=== PATIENT | male | born 1960 | race Caucasian/White ===

== ENCOUNTER 2017-01-18 12:06 | Emergency (ER) | payer SELFPAY ==
[2017-01-18 12:09] VITALS: BP 158/80
== END 2017-01-18 12:16 | disposition left against medical advice (07) ==
LOC: ED 12:06
DX: R53.1 Weakness (principal); Z53.21 Procedure and treatment not carried out due to patient leaving prior to being seen by health care provider

== ENCOUNTER 2017-06-04 14:54 | Emergency (ER) | payer OTHER ==
[~2017-06-04] VITALS: Ht 188 cm; Wt 99.8 kg
[2017-06-04 14:57] VITALS: Ht 188 cm; Wt 99.8 kg
[2017-06-04 15:57] VITALS: BP 138/104
== END 2017-06-04 15:57 | disposition home or self-care (01) ==
LOC: ED 14:54
DX: T63.441A Toxic effect of venom of bees, accidental (unintentional), initial encounter (principal); I10 Essential (primary) hypertension; E11.9 Type 2 diabetes mellitus without complications; E78.00 Pure hypercholesterolemia, unspecified; F31.9 Bipolar disorder, unspecified; Y92.89 Other specified places as the place of occurrence of the external cause
CPT/HCPCS: J2930; J3490; J7030

== ENCOUNTER 2018-09-06 13:41 | Emergency (ER) | payer OTHER ==
[~2018-09-06] VITALS: Ht 188 cm; Wt 109.8 kg
[2018-09-06 14:17] VITALS: BP 171/91; Ht 188 cm; Wt 109.8 kg
== END 2018-09-06 14:32 | disposition left against medical advice (07) ==
LOC: ED 13:41
DX: Z53.21 Procedure and treatment not carried out due to patient leaving prior to being seen by health care provider (principal)

== ENCOUNTER 2020-02-08 11:48 | Emergency (ER) | payer OTHER ==
[~2020-02-08] VITALS: Ht 182.9 cm; Wt 98.0 kg
[2020-02-08 12:23] VITALS: Ht 182.9 cm; Wt 98.0 kg
[2020-02-08 13:25] LABS: BASOPHIL % 0.5 % (0-2); PLATELET COUNT 276 x10^3mcL (130-400); RED CELL DISTRIBUTION WIDTH 13.3 % (11.5-14.5)
[2020-02-08 13:44] LABS: ALKALINE PHOSPHATASE 129 U/L (46-116); ALT/SGPT 50 U/L (16-63); AST/SGOT 28 U/L (15-37); BILIRUBIN TOTAL 0.3 mg/dL (0.20-1.00); CALCIUM 8.7 mg/dL (8.5-10.1); CARBON DIOXIDE 29.8 mmol/L (21-32); CHLORIDE SERUM 93 mmol/L (98-107); CREATININE SERUM 1.1 mg/dL (0.7-1.3); GFR1 > 60 mL/min; GLUCOSE SERUM 372 mg/dL (74-106); LIPASE 97 IU/L (73-393); POTASSIUM SERUM 3.9 mmol/L (3.5-5.1); TOTAL PROTEIN, SERUM 7.6 g/dL (6.4-8.2)
[2020-02-08 13:54] LABS: ALBUMIN 3.3 g/dL (3.4-5.0)
[2020-02-08 13:55] LABS: SODIUM SERUM 127 mmol/L (136-145)
[2020-02-08 17:16] LABS: CHOLESTEROL 185 mg/dL (<200); HDL CHOLESTEROL 45 mg/dL (40-60)
[2020-02-08 20:35] LABS: microscopic required? YES; urine erythrocyte 1+ (NEGATIVE)
[2020-02-08 20:53] LABS: AMPHETAMINE QUAL UR POSITIVE (See below)
[2020-02-08 22:56] VITALS: BP 128/70
== END 2020-02-08 20:45 | disposition home or self-care (01) ==
LOC: ED 11:48
PROVIDERS: Emergency Medicine
DX: U07.1 COVID-19 (principal); R10.13 Epigastric pain; E11.65 Type 2 diabetes mellitus with hyperglycemia; K57.30 Diverticulosis of large intestine without perforation or abscess without bleeding; E46 Unspecified protein-calorie malnutrition; I10 Essential (primary) hypertension; E78.00 Pure hypercholesterolemia, unspecified
CPT/HCPCS: 36600; 82962; 99406; G0480; J1815; J7030